=== PATIENT | female | born 1975 | race Caucasian/White ===

== ENCOUNTER 2023-02-28 08:45 | Day surgery (SDC) | payer BC ==
[2023-02-26 13:29] VITALS: BMI 36.1
[2023-02-28] MEDS ORDERED: PROPOFOL 20 ML ONE ×2 (10:14→13:19)
[2023-02-28] MEDS ORDERED: Fentanyl 100 MCG/2 ML VIAL ONE (10:16)
[2023-02-28] MEDS ORDERED: CEFAZOLIN 2 GM VIAL ONE (11:11)
[2023-02-28] MEDS ORDERED: Midazolam HCl 2 mg/2 ml Vial ONE (11:34)
[2023-02-28] MEDS ORDERED: ePHEDrine Sulfate 50 MG/10 ML VIAL ONE (11:58)
[2023-02-28] MEDS ORDERED: Ketorolac Tromethamine 30 MG/ML VIAL ONE (13:19)
[2023-02-28] MEDS ORDERED: HYDROcodone/Acetaminophen 5/325 mg Tablet ONE (14:20)
== END 2023-02-28 14:50 | disposition home or self-care (01) ==
LOC: CSHSDC 08:45
PROVIDERS: ATTEND Podiatrist Foot & Ankle Surgery
PROC: 0QBQ0ZZ Excision of Right Toe Phalanx, Open Approach (ICD-10-PCS; principal; 2023-02-28)
DX: S93.144A Subluxation of metatarsophalangeal joint of right lesser toe(s), initial encounter (principal); S93.524A Sprain of metatarsophalangeal joint of right lesser toe(s), initial encounter; I10 Essential (primary) hypertension; X58.XXXA Exposure to other specified factors, initial encounter; Z79.899 Other long term (current) drug therapy
CPT/HCPCS: C1713; J1885; J2250; J2704; J3010